=== PATIENT | female | born 1995 | race Caucasian/White ===

== ENCOUNTER 2017-04-16 12:12 | Day surgery (SDC) | payer OTHER ==
[~2017-04-16] VITALS: Ht 152.4 cm; Wt 85.7 kg
[~2017-04-16 12:12] MED LIST: BENADRYL; LORA1TAB PO
[2017-04-16 13:04] VITALS: Ht 152.4 cm; Wt 85.7 kg
[2017-04-16] MEDS ORDERED: ESCI10TA PO (13:10)
[2017-04-16 13:38] VITALS: BP 117/64; PULSE 78; RESP 25
[2017-04-16] MEDS ORDERED: LIDOCAINE 2% (SDV) 5 ML INJ ONE (14:03)
[2017-04-16] MEDS ORDERED: PROPOFOL 20 ML ONE (14:03)
--- NOTE | 2017-04-16 14:18 | OPPN ---
Date/Time of Note Date/Time of Note DATE: 04/16/17 TIME: 14:17 Operative Report Preoperative Diagnosis Abdominal pain and chronic heartburn Postoperative Diagnosis Gastroesophageal reflux disease Gastritis Small submucosal mass on the gastric antrum and biopsies were taken Operation/Procedure Performed Esophagogastroduodenoscopy and biopsy Surgeon see signature line real estate assistant None Anesthesia: MAC Estimated blood loss: none Transfusion Required none Specimen Biopsy of submucosal mass in the gastric antrum Grafts/Implants none Complications none CLARISA LEVY MD Apr 16, 2017 14:18
--- NOTE | 2017-04-16 14:18 | OPPN ---
Date/Time of Note Date/Time of Note DATE: 04/16/17 TIME: 14:17 Operative Report Preoperative Diagnosis Abdominal pain and chronic heartburn Postoperative Diagnosis Gastroesophageal reflux disease Gastritis Small submucosal mass on the gastric antrum and biopsies were taken Operation/Procedure Performed Esophagogastroduodenoscopy and biopsy Surgeon see signature line technical support assistant None Anesthesia: MAC Estimated blood loss: none Transfusion Required none Specimen Biopsy of submucosal mass in the gastric antrum Grafts/Implants none Complications none CLARISA LEVY MD Apr 16, 2017 14:18
--- NOTE | 2017-04-16 14:18 | OPPN ---
Date/Time of Note Date/Time of Note DATE: 04/16/17 TIME: 14:17 Operative Report Preoperative Diagnosis Abdominal pain and chronic heartburn Postoperative Diagnosis Gastroesophageal reflux disease Gastritis Small submucosal mass on the gastric antrum and biopsies were taken Operation/Procedure Performed Esophagogastroduodenoscopy and biopsy Surgeon see signature line surgical dental assistant None Anesthesia: MAC Estimated blood loss: none Transfusion Required none Specimen Biopsy of submucosal mass in the gastric antrum Grafts/Implants none Complications none CLARISA LEVY MD Apr 16, 2017 14:18
[2017-04-16 14:44] VITALS: BP 119/66; RESP 22
--- NOTE | 2017-04-17 03:04 | GILP ---
DATE OF PROCEDURE: NAME OF PROCEDURE: Esophagogastroduodenoscopy and biopsy. SURGEON: Dr. Carmelina Moreno PREOPERATIVE DIAGNOSES: 1. Abdominal pain. 2. Chronic heartburn. POSTOPERATIVE DIAGNOSES: 1. Gastroesophageal reflux disease. 2. Gastritis with erosions. 3. Small submucosal mass on the gastric antrum and biopsies were taken for histopathology. INDICATION FOR THE PROCEDURE: Ms. Martha Corrales is a 21-year-old female patient who had upper abdo phoebe pain and chronic heartburn not responding to therapy. The patient was scheduled for endoscopi c examination for further evaluation. The procedure and possible complications were well explained to the patient, she understood and cons ented to the procedure. DESCRIPTION OF PROCEDURE: Under the influence of anesthesia, the gastroscope was carefully introduc ed into the esophagus and under direct vision, it was advanced to the stomach and through the pyloru s, into duodenal bulb and descending duodenum. FINDINGS: ESOPHAGUS: The patient had gastroesophageal reflux disease. STOMACH: She had gastritis with erosions. She was noted to have a small submucosal mass on the gas tric antrum, and biopsies were taken for histopathology. DUODENUM: Normal. She tolerated the procedure very well and there was no complication from the procedure. At the end of the procedure, she was awake with stable vital signs and she was discharged home to the care of h er family. IMPRESSION: Please see postoperative diagnoses. PLAN: 1. Pantoprazole 40 mg p.o. q.a.m. 2. Bentyl 10 mg p.o. t.i.d. p.r.n. for pain. 3. Await histopathology report. Dictated By: CARMELINA INGRAM/TONIA Conf#: [id number] DID#: [id number]
--- NOTE | 2017-04-17 09:41 | CONS ---
DATE OF ADMISSION: 04/16/2017 DATE OF CONSULTATION: 04/08/2017 Patient Name: MARTHA MENDEZ TYPE OF CONSULTATION: Preoperative gastroenterology. Dear Dr. Alonso: Thank you very much for this kind referral. HISTORY OF PRESENT ILLNESS: Ms. Martha Mendez is a 21-year-old female patient who has been referre d to me for further evaluation of upper abdominal pain associated with nausea and chronic heartburn, not responding to therapy with pantoprazole. There is no past history of peptic ulcer disease. Sh vance is not taking any nonsteroidal anti-inflammatory agents. Her appetite has been good and there is no history of significant weight loss. The patient also gives history of constipation and she has b een taking Colace and Senna. There is no gastrointestinal tract bleeding. There is no history of g allstones or liver disease. The patient had abdominal ultrasound done and they were normal. 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 She is not a hypertensive or diabetic. No heart disease or lung problem. No kidney disease. She has history of panic attacks and she is on Ativan. SOCIAL HISTORY: She is a nonsmoker, no alcohol abuse, no family history of gastrointestinal tract n eoplasm. ALLERGIES: NO KNOWN DRUG ALLERGIES. MEDICATIONS: 1. Pantoprazole. 2. Colace. 3. Senna. 4. Ativan. PHYSICAL EXAMINATION: GENERAL: She is 5 feet tall and she weighs 191 pounds, normal heart sounds. LUNGS: Clear. ABDOMEN: Soft. No masses. Normal bowel sounds. NEUROLOGICAL: Normal exam. IMPRESSION: 1. Upper abdominal pain associated with heartburn. The patient also complains of nausea and vomiti ng. 2. She has been taking pantoprazole without relief. 3. Constipation. 4. The patient is on Colace and Senna. 5. 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 6. She had abdominal CT scan and she was noted to have the colon in between the liver and the diaph ragm. 7. History of panic attacks. PLAN: Endoscopic examination for further evaluation. Because of the obesity with a short thick nec k and history of panic attacks, she needs monitored anesthesia care. The procedure and possible complications are well explained to the patient. She understands and con sents to the procedure. After the endoscopy if the patient still has the pain, the patient will need surgical evaluation. Dictated By: CLARISA INGRAM/TONIA Conf#: [id number] DID#: [id number]
== END 2017-04-16 14:54 | disposition home or self-care (01) ==
LOC: GIL 12:12
PROVIDERS: ATTEND Internal Medicine Gastroenterology
DX: K29.50 Unspecified chronic gastritis without bleeding (principal); K21.9 Gastro-esophageal reflux disease without esophagitis
CPT/HCPCS: 43239; 84703; 88305; 88312; Z7610

== ENCOUNTER 2017-04-28 21:19 | Emergency (ER) | payer OTHER ==
[~2017-04-28] VITALS: Ht 152.4 cm; Wt 86.8 kg
[~2017-04-28 21:19] MED LIST changes: -BENADRYL; +ESCI10TA PO
[2017-04-28 21:32] VITALS: Ht 152.4 cm; Wt 86.8 kg
--- NOTE | 2017-04-28 22:48 | ERD ---
ER Documentation Chief Complaint Chief Complaint states feels anxious, hand numbness, blurry vision x 1 day HPI 20-year-old female presenting with a chief complaint of panic attack. Patient has a history of panic attacks. Is asking for medication to calm her down now. Has taken a medication by PCP but is no longer taking for the past 2-3 months due to ineffectiveness. It does not recall what medication she was on. Denies wanting to hurt herself or others. Denies fever, chills, nausea, vomiting, change in vision, difficulty breathing. No other medical conditions. Patient has no other complaints and describes no other associated manifestations. Nursing notes have been reviewed and are consistent with history given. ROS All systems reviewed and are negative except as per history of present illness. Medications Home Meds Active Scripts Lorazepam* (Lorazepam*) 1 Mg Tablet, 1 MG PO Q8H Y for ANXIETY, #14 TAB Prov:ALEKSANDR SOL PA-C 03/12/17 Reported Medications Escitalopram Oxalate* (Lexapro*) 10 Mg Tablet, 10 MG PO DAILY, #30 TAB 04/16/17 Allergies Allergies: Coded Allergies: No Known Allergy (Unverified , 08/18/11) PMhx/Soc History of Surgery: Yes (INTESTINAL SURGERY) Anesthesia Reaction: Yes Hx Neurological Disorder: No Hx Respiratory Disorders: No Hx Cardiac Disorders: No Hx Psychiatric Problems: Yes (ANXIETY) Hx Miscellaneous Medical Probl: No Hx Alcohol Use: Yes (SOCIALLY) Hx Substance Use: No Hx Tobacco Use: No Physical Exam Vitals Vital Signs Date Time Temp Pulse Resp B/P Pulse Ox O2 Delivery O2 Flow Rate FiO2 04/28/17 21:32 98.4 74 20 129/62 98 Physical Exam Const: Overweight 21-year-old female no acute distress Head: Atraumatic Eyes: Normal Conjunctiva ENT: Normal External Ears, Nose and Mouth. Neck: Full range of motion..~ No meningismus. Resp: Clear to auscultation bilaterally Cardio: Regular rate and rhythm, no murmurs Abd: Soft, non tender, non distended. Normal bowel sounds Skin: No petechiae or rashes Back: No midline or flank tenderness Ext: No cyanosis, or edema Neur: Awake and alert Psych: Normal Mood and Affect Results 24 hrs Current Medications Medications (Trade) Dose Ordered Sig/Racheal Route PRN Reason Start Time Stop Time Status Last Admin Dose Admin Lorazepam (Ativan) 0.5 mg ONCE ONCE PO 04/28/17 23:00 04/28/17 23:01 Procedures/MDM Otherwise healthy 21-year-old female presented with a chief complaint of panic attack. Patient has had panic attacks in the past. I have no suspicion for the patient wanting to hurt herself or others. No suspicion for endangerment of the airway or other physical pathology. Most likely diagnosis is anxiety attack. Patient has been given 0.5 mg of Ativan p.o. with resolution of symptoms in the emergency department. Patient will be managed outpatient. She has stated that she has an appointment with her PCP tomorrow. I have spoke with the patient regarding their condition and future management. They have verbally responded that they understand their status and treatment plan. The patients vitals are stable, and their current condition is appropriate for discharge. The patient will be given discharge instructions with return precautions. Departure Diagnosis: Primary Impression: Anxiety attack Condition: Stable Patient Instructions: Anxiety Reaction Referrals: QUINN MAGDALENO MD (PCP) Additional Instructions: Follow up with your PCP within the next 1-3 days for a more thorough evaluation and a possible referral to a specialist. Return the the emergency department immediately if symptoms worsen or change. If you have any questions regarding medications, ask your pharmacist or us before you leave. If any adverse reactions occur while taking your medications, discontinue the treatment and return to the emergency department immediately. Take your medications as directed, and complete the entire course of treatment. TEA BABIN PA-C Apr 28, 2017 22:48 TEA BABIN PA-C Apr 28, 2017 22:48
[2017-04-28] MEDS ORDERED: LORAZEPAM 0.5 MG TAB PO ONE (23:00)
== END 2017-04-28 23:47 | disposition home or self-care (01) ==
LOC: FTE 21:19
DX: F41.9 Anxiety disorder, unspecified (principal)
CPT/HCPCS: Z7502; Z7610; 99283

== ENCOUNTER 2017-06-20 13:34 | Emergency (ER) | END 2017-06-20 18:30 | disposition home or self-care (01) ==

== ENCOUNTER 2017-06-24 04:27 | Emergency (ER) | END 2017-06-24 05:57 | disposition home or self-care (01) ==

== ENCOUNTER 2017-08-17 15:21 | Emergency (ER) | END 2017-08-17 17:35 | disposition home or self-care (01) ==

== ENCOUNTER 2018-01-20 17:59 | Emergency (ER) | END 2018-01-20 18:16 | disposition left against medical advice (07) ==

== ENCOUNTER 2018-06-24 23:49 | Emergency (ER) | payer MEDICAID ==
[~2018-06-24] VITALS: Ht 152.4 cm; Wt 89.9 kg
[~2018-06-24 23:49] MED LIST changes: +CEPH-443 PO; +HYDR-843 PO; +IBUP-1542 PO; +LORA-441 PO; +ONDA4TAB8 PO; +PRED20TA PO
[2018-06-24 23:54] VITALS: Ht 152.4 cm; Wt 89.9 kg
--- NOTE | 2018-06-25 01:20 | ERD ---
ER Documentation Chief Complaint Chief Complaint genital itching/pain/dysuria x1 HPI 22-year-old female presents to emergency department for complaints of dysuria that started 1 week ago, has pain upon urination burning pain, 4/10 scale, has occasional genital itching. Patient denies any discharge ROS All systems reviewed and are negative except as per history of present illness. Medications Home Meds Active Scripts Ibuprofen* (Motrin*) 600 Mg Tab, 600 MG PO Q6, #30 TAB Prov:VIOLETA CARDOZO 08/17/17 Lorazepam* (Ativan*) 0.5 Mg Tablet, 0.5 MG PO Q8, #10 TAB Prov:VIOLETA CARDOZO 08/17/17 Ondansetron Hcl* (Zofran*) 4 Mg Tablet, 4 MG PO Q6H for NAUSEA AND/OR VOMITING, #30 TAB Prov:VIOLETA CARDOZO 08/17/17 Hydroxyzine Hcl* (Hydroxyzine Hcl*) 25 Mg Tablet, 25 MG PO Q8H PRN for ITCHING, #30 TAB Prov:ALVERTO KUMAR NP 06/24/17 Cephalexin* (Keflex*) 500 Mg Capsule, 500 MG PO QID for 10 Days, CAP Prov:ALVERTO KUMAR NP 06/24/17 Prednisone* (Prednisone*) 20 Mg Tab, 20 MG PO DAILY for lip swelling for 4 Days, TAB Prov:FREDI SPRING MD 06/20/17 Lorazepam* (Ativan*) 0.5 Mg Tablet, 0.5 MG PO Q8H PRN for ANXIETY, #20 TAB Prov:FREDI SPRING MD 06/20/17 Lorazepam* (Lorazepam*) 1 Mg Tablet, 1 MG PO Q8H PRN for ANXIETY, #14 TAB Prov:ALEKSANDR SOL PA-C 03/12/17 Reported Medications Escitalopram Oxalate* (Lexapro*) 10 Mg Tablet, 10 MG PO DAILY, #30 TAB 04/16/17 Allergies Allergies: Coded Allergies: No Known Allergy (Unverified , 08/18/11) PMhx/Soc History of Surgery: Yes (intestinal) Anesthesia Reaction: Yes Hx Neurological Disorder: No Hx Respiratory Disorders: No Hx Cardiac Disorders: No Hx Psychiatric Problems: Yes (ANXIETY) Hx Miscellaneous Medical Probl: Yes (GASTRITIS) Hx Alcohol Use: Yes (OCCASIONAL) Hx Substance Use: No Hx Tobacco Use: No Smoking Status: Never smoker FmHx Family History: No diabetes, No coronary disease, No other Physical Exam Vitals Vital Signs Date Temp Pulse Resp B/P (MAP) Pulse Ox O2 O2 Flow FiO2 Time Delivery Rate 06/24/18 99.9 95 16 140/82 97 23:54 (101) Physical Exam GENERAL: The patient is well developed and appropriate for usual state of health, in no apparent distress. CHEST: Clear to auscultation bilaterally. There are no rales, wheezes or rhonchi. HEART: Regular rate and rhythm. No murmurs, clicks, rubs or gallops. No S3 or S4. ABDOMEN: Soft, nontender and nondistended. Good bowel sounds. No rebound or guarding. No gross peritonitis. No gross organomegaly or masses. No Alex sign or McBurney point tenderness. BACK: No midline or flank tenderness. EXTREMITIES: Equal pulses bilaterally. There is no peripheral clubbing, cyano sis or edema. No focal swelling or erythema. Full range of motion. Grossly neurovascularly intact. NEURO: Alert and oriented. Cranial nerves 2-12 intact. Motor strength in all 4 extremities with 5/5 strength. Sensation grossly intact. Normal speech and g ait. SKIN: There is no apparent rash or petechia. The skin is warm and dry. HEMATOLOGIC AND LYMPHATIC: There is no evidence of excessive bruising or lymphedema. No gross cervical, axillary, or inguinal lymphadenopathy. Results 24 hrs Laboratory Tests Test 06/25/18 01:50 06/25/18 01:52 Bedside Urine pH (LAB) 6.5 Bedside Urine Protein (LAB) Negative Bedside Urine Glucose (UA) Negative Bedside Urine Ketones (LAB) Trace Bedside Urine Blood Negative Bedside Urine Nitrite (LAB) Negative Bedside Urine Leukocyte Esterase (L 2+ POC Beta HCG, Qualitative NEGATIVE Procedures/MDM Medical Decision Making: Patients symptoms are consistent with urinary tract infection. There is low suspicion for pyelonephritis. There is low suspicion for abdominal emergencies at this time. Patients abdominal exam is normal. There is low suspicion for sepsis. Patient appears well and is hemodynamically stable. Disposition: Home. Stable Prescription Keflex, Pyridium Instructions: Patient is advised to take medications as prescribed. Patient is advised to rest, increase fluid intake and do good perineal hygiene. Patient is advised that if symptoms are worse, severe abdominal pain, uncontrolled vomiting, high fever, severe flank pain, worst signs and symptoms, to return to the emergency department immediately. Otherwise, patient can follow up with primary care doctor in 5-7 days. Disclaimer: Inadvertent spelling and grammatical errors are likely due to EHR/dictation software use and do not reflect on the overall quality of patient care. Also, please note that the electronic time recorded on this note does not necessarily reflect the actual time of the patient encounter. Departure Diagnosis: Primary Impression: UTI (urinary tract infection) Urinary tract infection type: acute cystitis Hematuria presence: without hematuria Qualified Codes: N30.00 - Acute cystitis without hematuria Condition: Stable Patient Instructions: Understanding Urinary Tract Infections (UTIs) ALVERTO KUMAR NP Jun 25, 2018 01:20
[2018-06-25] MEDS ORDERED: PHEN-538 PO (02:01)
[2018-06-25] MEDS ORDERED: CEPH-443 PO (02:01)
[2018-06-25 02:08] VITALS: BP 143/93; PULSE 80; RESP 18
== END 2018-06-25 02:08 | disposition home or self-care (01) ==
LOC: FTE 23:49
DX: N30.00 Acute cystitis without hematuria (principal)
CPT/HCPCS: 81003; 81025; Z7502; 99282

== ENCOUNTER 2018-07-20 14:45 | Emergency (ER) | payer MEDICAID ==
[~2018-07-20] VITALS: Ht 152.4 cm; Wt 92.7 kg
[~2018-07-20 14:45] MED LIST changes: +PHEN-538 PO
[2018-07-20 14:52] VITALS: Ht 152.4 cm; Wt 92.7 kg
[2018-07-20] MEDS ORDERED: ONDANSETRON 4 MG INJ IV STA (16:10)
[2018-07-20] MEDS ORDERED: morphine 4 MG/ML VIAL IV STA (16:10)
[2018-07-20] MEDS ORDERED: SOD CHLORIDE 0.9% 1,000 ML IV STA (16:10)
[2018-07-20] MEDS ORDERED: KETOROLAC 30 MG INJ IV STA (16:10)
--- NOTE | 2018-07-20 16:12 | ERD ---
ER Documentation Chief Complaint Chief Complaint Complains of abdominal pain and flank pain Hx of kidney stone HPI This is a 22-year-old female with a prior history of kidney stones presents for evaluation of left flank pain. She never required surgery for kidney stones, she denies fever, endorses nausea, but no vomiting. She is otherwise healthy ROS All systems reviewed and are negative except as per history of present illness. Medications Home Meds Reported Medications Norgestimate-Ethinyl Estradiol (Tri-Sprintec Tablet) 1 Each Tablet, 1 EACH PO DAILY, TAB 07/20/18 Discontinued Reported Medications Escitalopram Oxalate* (Lexapro*) 10 Mg Tablet, 10 MG PO DAILY, #30 TAB 04/16/17 Discontinued Scripts Phenazopyridine Hcl* (Pyridium*) 200 Mg Tab, 200 MG PO TID PRN for URINARY PAIN, #6 TAB Prov:ALVERTO KUMAR NP 06/25/18 Cephalexin* (Keflex*) 500 Mg Capsule, 500 MG PO QID for 10 Days, CAP Prov:ALVERTO KUMAR NP 06/25/18 Ibuprofen* (Motrin*) 600 Mg Tab, 600 MG PO Q6, #30 TAB Prov:JULIANEVIOLETA TOBIAS 08/17/17 Lorazepam* (Ativan*) 0.5 Mg Tablet, 0.5 MG PO Q8, #10 TAB Prov:VIOLETA CARDOZO 08/17/17 Ondansetron Hcl* (Zofran*) 4 Mg Tablet, 4 MG PO Q6H for NAUSEA AND/OR VOMITING, #30 TAB Prov:VIOLETA CARDOZO 08/17/17 Hydroxyzine Hcl* (Hydroxyzine Hcl*) 25 Mg Tablet, 25 MG PO Q8H PRN for ITCHING, #30 TAB Prov:ALVERTO KUMAR NP 06/24/17 Cephalexin* (Keflex*) 500 Mg Capsule, 500 MG PO QID for 10 Days, CAP Prov:ALVERTO KUMAR NP 06/24/17 Prednisone* (Prednisone*) 20 Mg Tab, 20 MG PO DAILY for lip swelling for 4 Days, TAB Prov:FREDI SPRING MD 06/20/17 Lorazepam* (Ativan*) 0.5 Mg Tablet, 0.5 MG PO Q8H PRN for ANXIETY, #20 TAB Prov:FREDI SPRING MD 06/20/17 Lorazepam* (Lorazepam*) 1 Mg Tablet, 1 MG PO Q8H PRN for ANXIETY, #14 TAB Prov:ALEKSANDR SOL PA-C 03/12/17 Allergies Allergies: Coded Allergies: No Known Allergy (Unverified , 07/20/18) PMhx/Soc History of Surgery: Yes (intestinal) Anesthesia Reaction: Yes Hx Neurological Disorder: No Hx Respiratory Disorders: No Hx Cardiac Disorders: No Hx Psychiatric Problems: Yes (ANXIETY) Hx Miscellaneous Medical Probl: Yes (GASTRITIS) Hx Alcohol Use: Yes (OCCASIONAL) Hx Substance Use: No Hx Tobacco Use: No Physical Exam Vitals Vital Signs Date Temp Pulse Resp B/P (MAP) Pulse Ox O2 O2 Flow FiO2 Time Delivery Rate 07/20/18 76 18 94/55 (68) 100 Room Air 17:27 07/20/18 99.8 80 20 146/105 100 14:52 (119) Physical Exam Const: Patient appears uncomfortable, lying sideways, try to find a comfortable position. Head: Atraumatic Eyes: Normal Conjunctiva ENT: Normal External Ears, Nose and Mouth. Neck: Full range of motion. No meningismus. Resp: Clear to auscultation bilaterally Cardio: Regular rate and rhythm, no murmurs Abd: Soft, non tender, non distended, no rebound or guarding, negative McBurney's point tenderness, negative Alex sign. Normal bowel sounds Skin: No petechiae or rashes Back: No midline or flank tenderness Ext: No cyanosis, or edema Neur: Awake and alert Psych: Normal Mood and Affect Results 24 hrs Laboratory Tests Test 07/20/18 16:15 07/20/18 16:19 Urine Color YELLOW Urine Clarity CLOUDY Urine pH 7.0 Urine Specific [place] 1.015 Urine Ketones NEGATIVE mg/dL Urine Nitrite NEGATIVE mg/dL Urine Bilirubin NEGATIVE mg/dL Urine Urobilinogen NEGATIVE mg/dL Urine Leukocyte Esterase NEGATIVE Hannah/ul Urine Microscopic RBC 41 /HPF Urine Microscopic WBC 3 /HPF Urine Squamous Epithelial Cells MODERATE /HPF Urine Bacteria FEW /HPF Urine Mucus FEW /HPF Urine Hemoglobin 3+ mg/dL Urine Glucose NEGATIVE mg/dL Urine Total Protein NEGATIVE mg/dl POC Beta HCG, Qualitative NEGATIVE Current Medications Medications Dose Sig/Racheal Start Time Status Last (Trade) Ordered Route PRN Stop Time Admin Dose Reason Admin Sodium 1,000 ml @ Q1H STAT 07/20/18 DC 07/20/18 Chloride 1,000 mls/hr IV 16:10 16:27 07/20/18 17:09 Morphine 4 mg ONCE STAT 07/20/18 DC 07/20/18 Sulfate IV 16:10 16:27 (morphine) 07/20/18 16:11 Ondansetron 4 mg ONCE STAT 07/20/18 DC 07/20/18 HCl (Zofran IV 16:10 16:27 Inj) 07/20/18 16:11 Ketorolac 30 mg ONCE STAT 07/20/18 DC 07/20/18 Tromethamine IV 16:10 16:27 (Toradol) 07/20/18 16:11 1 mg ONCE STAT 07/20/18 DC 07/20/18 Hydromorphone IV 17:35 17:41 HCl 07/20/18 17:36 (Dilaudid) Ketorolac 15 mg ONCE STAT 07/20/18 DC 07/20/18 Tromethamine IV 17:37 17:41 (Toradol) 07/20/18 17:38 Procedures/MDM This is a 22-year-old female presents for evaluation of recurrent kidney stones, she presents with intermittent right flank pain. History and physical is consistent with likely renal colic, her CT confirmed a 3 mm UVJ stone, with mild left hydroureter, patient has no evidence of infection, her pain was controlled in the ED, she will be discharged with [place], ibuprofen, as well as Flomax, at discharge she was in no acute distress. IMPRESSION: Mild left hydroureter nephrosis with 3 mm stone ureterovesicular junction. Multiple tiny nonobstructing left renal calculi. Departure Diagnosis: Primary Impression: Flank pain Additional Impression: Kidney stones Condition: Stable NADEGE COCHRAN MD Jul 20, 2018 16:12
[2018-07-20] MEDS ORDERED: HYDROmorphONE 1 MG/ML SYG IV STA (17:35)
[2018-07-20] MEDS ORDERED: KETOROLAC 15 MG INJ IV STA (17:37)
[2018-07-20] MEDS ORDERED: NORG1TAB15 PO (17:44)
[2018-07-20] MEDS ORDERED: IBUP-1542 PO (18:32)
[2018-07-20] MEDS ORDERED: TAMS-14 PO (18:32)
[2018-07-20] MEDS ORDERED: HYDR-4011 PO (18:32)
[2018-07-20 19:00] VITALS: BP 129/82; PULSE 76; RESP 16
[2018-07-20] MEDS ORDERED: DIPHENHYDRAMINE 25 MG CAP PO ONE (19:00)
== END 2018-07-20 19:01 | disposition home or self-care (01) ==
LOC: E/R 14:45
DX: N20.0 Calculus of kidney (principal)
CPT/HCPCS: 74176; 81001; 81025; 87086; 96374; 96375; 96376; J1170; J1885; J2270; J2405; J7030; Z7502; Z7610

== ENCOUNTER 2018-08-05 18:57 | Emergency (ER) | payer MEDICAID ==
[~2018-08-05] VITALS: Ht 152.4 cm; Wt 92.1 kg
[~2018-08-05 18:57] MED LIST changes: -CEPH-443 PO; -ESCI10TA PO; +HYDR-4011 PO; -HYDR-843 PO; -LORA-441 PO; -LORA1TAB PO; +NORG1TAB15 PO; -ONDA4TAB8 PO; -PHEN-538 PO; -PRED20TA PO; +TAMS-14 PO
[2018-08-05 19:00] VITALS: BP 136/87; PULSE 115; RESP 20; Ht 152.4 cm; Wt 92.1 kg
[2018-08-05] MEDS ORDERED: OSEL75CA23 PO (21:13)
--- NOTE | 2018-08-05 21:16 | ERD ---
ER Documentation Chief Complaint Chief Complaint C/O FEELING COLD, BODY ACHES AND EYE PAIN X2 DAYS HPI This is a 22-year-old female who presents with 2 days of fever body aches chills feeling cold and eye pain. The mild cough and runny nose. No nausea or vomiting. Occasional dizziness. She has been taking Tylenol and Motrin at home. ROS All systems reviewed and are negative except as per history of present illness. Medications Home Meds Active Scripts Oseltamivir Phosphate* (Tamiflu*) 75 Mg Capsule, 75 MG PO BID for 5 Days, CAP Prov:LOAN LAZAR PA-C 08/05/18 Tamsulosin Hcl* (Flomax*) 0.4 Mg Cap.er.24h, 0.4 MG PO QPM, #30 CAP Prov:NADEGE COCHRAN MD 07/20/18 Ibuprofen* (Motrin*) 600 Mg Tab, 600 MG PO Q6, #30 TAB Prov:NADEGE COCHRAN MD 07/20/18 Hydrocodone/Acetaminophen ([place] 5-325 Tablet) 1 Each Tablet, 1 TAB PO Q6H PRN for PAIN, #7 TAB Prov:NADEGE COCHRAN MD 07/20/18 Reported Medications Norgestimate-Ethinyl Estradiol (Tri-Sprintec Tablet) 1 Each Tablet, 1 EACH PO DAILY, TAB 07/20/18 Allergies Allergies: Coded Allergies: No Known Allergy (Unverified , 07/20/18) PMhx/Soc History of Surgery: Yes (intestinal) Anesthesia Reaction: Yes Hx Neurological Disorder: No Hx Respiratory Disorders: No Hx Cardiac Disorders: No Hx Psychiatric Problems: Yes (ANXIETY) Hx Miscellaneous Medical Probl: Yes (GASTRITIS, kidney stones) Hx Alcohol Use: Yes (OCCASIONAL) Hx Substance Use: No Hx Tobacco Use: No Smoking Status: Never smoker FmHx Family History: No diabetes Physical Exam Vitals Vital Signs Date Temp Pulse Resp B/P (MAP) Pulse Ox O2 O2 Flow FiO2 Time Delivery Rate 08/05/18 100.0 115 20 136/87 98 19:00 (103) Physical Exam INITIAL VITAL SIGNS: Reviewed by me GENERAL: Awake, alert and oriented x 4, well appearing, nontoxic, speaking in full sentences. No acute distress HEAD: Atraumatic NECK: Supple. No masses. Full range of motion. No meningismus. No midline tenderness. EYES: EOMI. PERRL. EAR: No tenderness over the mastoids bilaterally. No exudates in the canals. TMs nonerythematous. NOSE: Normal nose. THROAT: No tonilar erythema or edema. No exudates. Uvula midline. No kissing tonsils. RESPIRATORY: Clear to auscultation bilaterally. Symmetric chest wall rise. No wheezing or rales. No accessory muscle use. CV: Regular rate and rhythm. No murmurs, rubs, or gallops. ABDOMEN: Soft, non-distended. Nontender. Negative [place]. Negative [place] point tenderness. No CVA tenderness bilaterally. No guarding. No rebound. : Deffered. EXTREMITIES: No clubbing or cyanosis. No edema. Moving all extremities normally. BACK: No midline tenderness to palpation. No step-offs. SKIN: Warm and dry. No rash or petechiae. NEUROLOGIC: Normal mental status and speech. Face is symmetric. Moves all extremities equally. Motor and sensory distally intact. Normal coordination. Ambulates with a strong steady gait. Procedures/MDM Patient presents with flulike symptoms. She still within the therapeutic window for Tamiflu so she was given prescription for Tamiflu. She should continue to take Tylenol and/or Motrin at home. Patient counseled regarding my diagnostic impression and care plan. Prior to discharge all questions answered. Pt agrees with treatment plan and understands strict return precautions. Pt is instructed to follow up with primary care provider within 24-48 hours. Precautionary instructions provided including instructions to return to the ER if not improving or for any worsening or changing symptoms or concerns. Departure Diagnosis: Primary Impression: Flu-like symptoms Condition: Stable Patient Instructions: Influenza (Adult) Additional Instructions: Call your primary care doctor TOMORROW for an appointment during the next 1-2 days.See the doctor sooner or return here if your condition worsens before your appointment time. LOAN LAZAR PA-C Aug 05, 2018 21:16
== END 2018-08-05 23:58 | disposition left against medical advice (07) ==
LOC: FTE 18:57
DX: H57.10 Ocular pain, unspecified eye (principal); R05 Cough; R50.9 Fever, unspecified
CPT/HCPCS: 99283

== ENCOUNTER 2018-10-03 16:52 | Emergency (ER) | payer SELFPAY ==
[~2018-10-03 16:52] MED LIST changes: +OSEL75CA23 PO
== END 2018-10-03 17:57 | disposition left against medical advice (07) ==
LOC: FTE 16:52
DX: Z53.21 Procedure and treatment not carried out due to patient leaving prior to being seen by health care provider (principal)